=== PATIENT | male | born 1975 | race Caucasian/White ===

== ENCOUNTER 2017-06-02 11:47 | Day surgery (SDC) | payer OTHER ==
[2017-05-29 17:48] VITALS: BMI 25.5
[2017-06-02] MEDS ORDERED: MIDAZOLAM HCL 2 MG/2 ML SINGLE DOSE VIAL ONE (12:12)
[2017-06-02] MEDS ORDERED: LEVOFLOXACIN 500 MG IVPB 100 ML IVPB ONE (12:30)
[2017-06-02] MEDS ORDERED: LEVOFLOXACIN 500 MG IVPB ONE (13:15)
[2017-06-02] MEDS ORDERED: LEVOFLOXACIN 500 MG PREMIX BAG IVPB ONE (13:16)
[2017-06-02] MEDS ORDERED: PROMETHAZINE HCL 25 MG/1 ML VIAL IVPUSH PRN (13:32)
[2017-06-02] MEDS ORDERED: oxyCODONE HCL 5 MG TABLET PO PRN (13:32)
[2017-06-02] MEDS ORDERED: ONDANSETRON 4 MG/2 ML VIAL IVPUSH PRN (13:32)
[2017-06-02] MEDS ORDERED: LACTATED RINGERS SOLUTION 1,000 ML IV SCH (13:45)
[2017-06-02 14:51] VITALS: TEMP 98
--- NOTE | 2017-06-02 16:02 | OP ---
Operative Note - Note: Operative Date: 06/02/17 Pre-Operative Diagnosis: right renal stone Operation: right ESWL Post-Operative Diagnosis: Same as Pre-op Anesthesia: Fractional
[2017-06-02 16:03] VITALS: BP 109/48; PULSE 64
--- NOTE | 2017-06-03 14:27 | OP ---
DATE OF OPERATION: 06/02/2017 PREOPERATIVE DIAGNOSIS: Right renal stones. POSTOPERATIVE DIAGNOSIS: Right renal stones. PROCEDURE: Right extracorporeal shock wave lithotripsy. ATTENDING: Sherman Guillermo MD ANESTHESIA: Fractional. DESCRIPTION OF OPERATION: Patient was brought in the operating room and placed in a supine position on the operating room table. Two stones each measuring 3 and 5 mm, respectively, were noted in the right mid-pole kidney. At this point, anesthesia and preoperative antibiotics were administered; 800 impulses at 17 joules of power were administered to the 3-mm stone; 1700 impulses at 17 joules of power were administered to the 5-mm stone. Excellent fragmentation was noted. No complications were noted. The disposition of the patient was to recovery room. SHERMAN GUILLERMO M.D. [id number]
== END 2017-06-02 16:08 | disposition home or self-care (01) ==
LOC: JASU-SURG 11:47
PROVIDERS: ATTEND Urology
PROC: 0TF3XZZ Fragmentation in Right Kidney Pelvis, External Approach (ICD-10-PCS; principal; 2017-06-02 12:30)
DX: N20.0 Calculus of kidney (principal)
CPT/HCPCS: 94760

== ENCOUNTER 2018-02-11 08:23 | Day surgery (SDC) | payer OTHER ==
[2018-02-10 14:28] VITALS: BMI 26.6
--- NOTE | 2018-02-10 19:26 | PREOP ---
DATE OF ADMISSION: 02/11/2018 PREOPERATIVE DIAGNOSIS: Deviated nasal septum, inferior turbinate hypertrophy, chronic sinusitis. HISTORY OF PRESENT ILLNESS: This 42-year-old male has had significant and chronic nasal obstruction and has not improved with appropriate medical therapy. It is primarily right-sided. His sense of smell is satisfactory on the left side, but poor on the right. He has known allergies and uses Flonase. He is very symptomatic and has marked nasal septal deviation as well as inferior turbinate hypertrophy, left greater than right. Chronic sinusitis is also found on CT scan. He is now admitted for nasal septal turbinate and endoscopic sinus surgery. PAST MEDICAL HISTORY: Primary medical doctor is Dr. Gray. Patient has a long medical history. Of note, he does have profound hearing loss since childhood, which is not aidable. This is felt to be related to an infection during infancy. He is nonverbal and uses Beninese Sign Language as well as electronic communication. He also has a history of hypertension, kidney stones, hernia, glaucoma, middle ear infections for which he had myringotomy with tubes twice and adenoidectomy, cataracts. He does not smoke. ALLERGIES: None known. PRESENT MEDICATIONS: Fluticasone nasal spray. PAST SURGICAL HISTORY: Includes a spinal procedure one year ago, which was done under local anesthesia. He also had an arm fracture requiring open reduction internal fixation. He has had cataract surgery as well as the aforementioned myringotomy tubes and adenoidectomy. He has undergone general anesthesia and had some slight dizziness and occasional nausea postoperatively. BLEEDING HISTORY: Negative. FAMILY HISTORY: Negative for bleeding or anesthesia problems. His sense of smell is fair. PHYSICAL EXAMINATION: General: The patient is a well-developed male, in no distress. HEENT: Head is normal. Eyes are clear. Ears are unremarkable, but he is deaf and communicates with Beninese Sign Language via an couturiere. The nose has marked severe deviation with obstruction. There is mucosa edema. Nasal endoscopic examination shows severe deviation of the septum and turbinate hypertrophy. There is no pus or polyp. There was an adenoidectomy scar in the nasopharynx. CT scan of the paranasal sinuses performed at [facility] on July 25, 2017, shows evidence of old nasal fractures. There is also evidence of an old maxillary fracture. Chronic eye changes are noted. There were retention cysts in both maxillary sinuses as well as mucosal thickening along the left sphenoid sinus. Septum is significantly deviated to the right, indenting the lateral nasal wall and there is mild hypertrophy of the left inferior turbinate. There is some thickening of the ethmoid sinuses. IMPRESSION: Severe deviation of the septum and inferior turbinate hypertrophy with nasal obstruction and chronic sinusitis. PLAN: Endoscopic sinus surgery to address maxillary, ethmoid, and left sphenoid sinus, nasal septoplasty, and inferior turbinate surgery. Image guidance. INFORMED CONSENT: Patient understands the indications, alternatives, nature, risks, and benefits of proposed surgery. Potential complications including but not limited to anesthesia, bleeding, infection, recurrence, reduced sense of smell, eye injury or brain injury were discussed in detail. He understands and accepts these risks and wishes to proceed with surgery. Questions were answered fully. MAJOR HERRERA M.D. [id number]
[2018-02-11] MEDS ORDERED: COCAINE HCL 4% TOPICAL SOLUTION 4 ML BOTTLE TP ONE ×2 (10:00→11:12)
--- NOTE | 2018-02-11 10:06 | HP ---
History & Physical Update - History History: No Change - Physical Physical: No Change - Assessment Assessment: No Change - Plan Plan: No Change
[2018-02-11] MEDS ORDERED: MIDAZOLAM HCL 2 MG/2 ML SINGLE DOSE VIAL ONE (10:46)
[2018-02-11] MEDS ORDERED: PROPOFOL 20 ML ONE (10:53)
[2018-02-11] MEDS ORDERED: ROCURONIUM BROMIDE 50 MG/5 ML VIAL ONE ×2 (10:53→12:12)
[2018-02-11] MEDS ORDERED: ceFAZolin SODIUM 1 GM VIAL IVPB ONE (10:59)
[2018-02-11] MEDS ORDERED: LIDOCAINE 1%/EPI 1:100000 (50 ML MULTI DOSE VIAL) INF ONE ×2 (11:12)
[2018-02-11] MEDS ORDERED: BACITRACIN 15 GM TUBE TOPICAL OINTMENT ONE (11:42)
[2018-02-11] MEDS ORDERED: GLYCOPYRROLATE 0.2 MG/1 ML VIAL ONE (12:34)
[2018-02-11] MEDS ORDERED: NEOSTIGMINE METHYLSULFATE 0.5 MG/ML - 10 ML MDV ONE (12:51)
[2018-02-11] MEDS ORDERED: oxyCODONE HCL 5 MG TABLET PO PRN ×2 (12:59→13:36)
[2018-02-11] MEDS ORDERED: ACETAMINOPHEN 325 MG TABLET (FP) PO PRN (12:59)
[2018-02-11] MEDS ORDERED: TRIMETHOBENZAMIDE HCL 200MG/2ML INJ IM PRN (12:59)
--- NOTE | 2018-02-11 12:59 | OP ---
Operative Note - Note: Operative Date: 02/11/18 ([id number]) Pre-Operative Diagnosis: nasal septal deviation, inferior turbinate hypertrophy , bilateral maxillary sinusitis Operation: nasal septoplasty, left inferior turbinate outfracture and cauterization, bilateral endoscopic maxillary antrostomy with removal of tissue Findings: severe septal deviation to right, bony and cartilaginous left inferior turbinate hypertrophy, soft tissue bilateral maxillary chronic sinusitis right maxillary sinus cyst and mucopyocoele Implants: none Post-Operative Diagnosis: Same as Pre-op Surgeon: Ramu Guzman Anesthesiologist/WIND TURBINE INSTALLER: Halima Blount MD Anesthesia: General Specimens Removed: left maxillary sinus, right maxillary sinus , nasal septum Estimated Blood Loss (mls): 20 Blood Volume Replaced (mls): 0 Operative Report Dictated: Yes
[2018-02-11] MEDS ORDERED: LACTATED RINGERS SOLUTION 1,000 ML IV SCH ×2 (13:00→13:45)
[2018-02-11] MEDS ORDERED: ONDANSETRON 4 MG/2 ML VIAL ONE (13:32)
[2018-02-11] MEDS ORDERED: PROMETHAZINE HCL 25 MG/1 ML VIAL IVPUSH PRN (13:36)
[2018-02-11] MEDS ORDERED: ONDANSETRON 4 MG/2 ML VIAL IVPUSH PRN (13:36)
--- NOTE | 2018-02-11 14:58 | OP ---
DATE OF OPERATION: 02/11/2018 PREOPERATIVE DIAGNOSES: Nasal septal deviation, inferior turbinate hypertrophy, bilateral maxillary chronic sinusitis. POSTOPERATIVE DIAGNOSES: Nasal septal deviation, inferior turbinate hypertrophy, bilateral maxillary chronic sinusitis. PROCEDURE: Nasal septoplasty, left inferior turbinate outfracture and cauterization, bilateral endoscopic maxillary antrostomy with removal of tissue. SURGEON: Ramu Guzman MD ANESTHESIOLOGIST: Halima Blount MD ANESTHESIA: General via endotracheal tube. INDICATION: This 42-year-old gentleman has had longstanding nasal obstruction. He has a markedly deviated septum and CT scan suggests previous bilateral nasal bone fractures. He also has left inferior turbinate hypertrophy which is likely compensatory. He has bilateral maxillary sinus disease which is chronic. The CT scan report suggested left sphenoid disease, but close review of the CT scan did not show this to be significant. He is now brought to surgery for treatment. FINDINGS: Markedly deviated septum to the right, bony and cartilaginous. Left inferior turbinate hypertrophy, primarily soft tissue. Bilateral maxillary sinus disease including a cyst and mucopyocele on the right side at the base. PROCEDURE: Patient was brought to the operating room and placed on the operating table in the supine position. General endotracheal anesthesia was induced to a satisfactory level. He was prepped and draped in the usual fashion for surgery. Lidocaine 1% with epinephrine 1:100,000 was infiltrated in the nasal septum. Cocaine 4% was placed in the nasal cavities on pledgets. Patient's CT scan data was uploaded to the [employer] navigation system. Patient was registered and the navigation system was used intermittently throughout the case in order to identify anatomic landmarks and guide surgical dissection. The pledgets were removed. Nasal endoscopy was performed with the 0-degree telescope. There was severe deviation of the septum to the right. There was no visualization of the middle turbinate or middle meatus on the right side. The left side did show hyperemia and some edema of the middle turbinate with friability. The left inferior turbinate was hypertrophic with obstruction, primarily soft tissue. Nasopharynx was clear and had an adenoidectomy scar. There was on the anterior portion of the left inferior turbinate what appeared to be some old scar tissue. Lidocaine with epinephrine was infiltrated in the left middle turbinate as well as lateral nasal wall. Additional cocaine 4% was packed within the middle meatus. The left paranasal sinus was first addressed. The middle turbinate was hypervascular. Limited cauterization was performed because of some minor bleeding. The middle meatus was then entered. The uncinate process was present. However, the infundibulum appeared to be scarred over. The accessory ostium was identified and then enlarged with the backbiting and forward-cutting forceps. Adequate-sized middle meatal antrostomy was created. The 70-degree scope was used and the interior of the sinus appeared unremarkable. Attention was then turned to the nasal septum which was required in order to access the right paranasal sinuses. A left nasal septal incision was created with the 15 blade and the cartilage identified. A left mucoperichondrial flap was elevated. The bony cartilaginous junction was identified and . Bilateral mucoperiosteal flaps were elevated. Minor oozing was noted. There was extreme deviation to the right side. An inferior strip of cartilage was excised. Significant bony obstruction was then removed with the [place] forceps and the [place] forceps especially along the perpendicular plate of the ethmoid. The area of maximum convexity was removed. After the maneuvers the nasal septum was in a more midline position though still with some residual deviation. However, adequate access to the middle turbinate and the middle meatus was now visible. Pieces of cartilage and bone were then replaced in the in order to reconstitute the middle layer. The incision was closed with interrupted 4-0 chromic and a [id number] quilting suture was also placed. Attention was then turned toward the left inferior turbinate. This was primarily soft tissue hypertrophy. Therapeutic outfracture was performed with the [place] elevator and the turbinate was pushed laterally. Mirror cauterization was performed with the suction cautery in an island fashion. Improvement of the left nasal airway was accomplished. Finally attention was turned toward the right maxillary sinus. The middle turbinate was minimally edematous but very floppy. A middle meatal antrostomy was created with the forward- and reverse-cutting forceps. The 70-degree scope was then utilized with curved suction and an anterior maxillary sinus cyst and a more posterior smaller right maxillary sinus mucopyocele was identified. These were then removed using the 70-degree and 110-degree giraffe forceps. Fluid was suctioned and adequate cyst wall removal was accomplished to minimize recurrence. After these procedures, maxillary sinuses were open and clear. Hemostasis was achieved with electrocautery. NasoPore packing was then placed in the right middle meatus and NasoPore packing was placed in the left middle meatus. Along the left inferior nasal cavity folded Telfa gauze was placed. Patent tolerated the procedure well. He was then awakened from general anesthesia and transferred to the PACU in stable condition. Estimated blood loss was 20 mL. He received crystalloid during the procedure. Specimens included left maxillary sinus tissue, right maxillary sinus tissue and nasal septal tissue which were sent to Pathology for routine studies. There were no complications. RAMU GUZMAN M.D. [id number]
[2018-02-11 16:19] VITALS: TEMP 98.7
[2018-02-11 19:26] VITALS: BP 120/62; PULSE 57
== END 2018-02-11 20:40 | disposition home or self-care (01) ==
LOC: JASU-SURG 08:23
PROVIDERS: ATTEND Otolaryngology
PROC: 09TL8ZZ Resection of Nasal Turbinate, Via Natural or Artificial Opening Endoscopic (ICD-10-PCS; 2018-02-11)
PROC: 099R8ZZ Drainage of Left Maxillary Sinus, Via Natural or Artificial Opening Endoscopic (ICD-10-PCS; 2018-02-11)
PROC: 099Q8ZZ Drainage of Right Maxillary Sinus, Via Natural or Artificial Opening Endoscopic (ICD-10-PCS; 2018-02-11)
PROC: 09BM8ZZ Excision of Nasal Septum, Via Natural or Artificial Opening Endoscopic (ICD-10-PCS; principal; 2018-02-11 09:00)
DX: J34.2 Deviated nasal septum (principal); J34.3 Hypertrophy of nasal turbinates; J32.0 Chronic maxillary sinusitis